=== PATIENT | female | born 1950 | race Caucasian/White ===

== ENCOUNTER 2022-04-28 06:17 | Day surgery (SDC) | payer MEDICARE, SELFPAY ==
--- NOTE | 2022-04-27 13:14 | P.CONAN_ITS ---
Documented by User: Melissa Spencer NP 04/27/22 13:14 HPI - Anesthesia Eval Consult details Narrative: 71yo F for [facility] Past Medical History Medical History (Updated 04/27/22 @ 10:51 by Paula Tomlin RN) Arthritis of left hip Asthma Bipolar 1 disorder GERD (gastroesophageal reflux disease) Heart attack HTN (hypertension) Hyperlipidemia Osteoporosis Uterine cancer Surgical History Surgical History (Updated 04/27/22 @ 10:51 by Paula Tomlin RN) H/O colonoscopy H/O esophagogastroduodenoscopy History of laparoscopic appendectomy History of total abdominal hysterectomy Social History Social History Patient Tobacco Use Status: Current everyday Tobacco user Tobacco use type: Cigarette Cigarettes Per Day: 8 Use of substances other than those prescribed or required for medical reasons: No Advance Directives: No Advance Directives Information Provided: Yes Meds Allergies Allergy/AdvReac Type Severity Reaction Status Date / Time diazepam [From Valium] Allergy Severe RESP Verified 04/28/22 06:51 DISTRESS penicillin G [Penicillin G] Allergy Intermediate HIVES Verified 04/28/22 06:51 Shellfish Allergy Intermediate HIVES/SWELL Uncoded 12/20/19 15:31 ING Home Medications Medication Instructions Recorded Confirmed Last Taken Type albuterol sulfate 90 mcg/actuation 1 inh inhalation Q4-6H PRN Wheezing 04/27/22 04/27/22 Unknown History breath activated powder inhaler (ProAir RespiClick) alendronate 70 mg tablet 70 mg PO 04/27/22 Unknown History atenolol 25 mg tablet 25 mg PO DAILY 04/27/22 04/27/22 04/28/22 History 25 mg atorvastatin 40 mg tablet 40 mg PO DAILY 04/27/22 04/27/22 Unknown History lisinopril 40 mg tablet 40 mg PO DAILY 04/27/22 04/27/22 Unknown History naproxen sodium 220 mg capsule 220 mg PO BID PRN Pain 04/27/22 04/27/22 Unknown History (Aleve) olanzapine 10 mg tablet 10 mg PO DAILY 04/27/22 04/27/22 Unknown History oxcarbazepine 600 mg tablet 1,200 mg PO DAILY 04/27/22 04/27/22 Unknown History oxycodone-acetaminophen 5 mg-325 tab 04/27/22 04/27/22 Unknown History mg tablet Exam Exam Date and Time: April 27, 2022 1314 Assessment and Plan Assessment Anesthesia Assessment: Chart Reviewed Documented by User: Daniel Estrada MD 04/28/22 07:21 HPI - Anesthesia Eval Consult details Narrative: 71yo F for Colonoscopy 2009 coronary stent, still smokes, PMFSH Past Medical History Medical History (Updated 04/27/22 @ 10:51 by Paula Tomlin RN) Arthritis of left hip Asthma Bipolar 1 disorder GERD (gastroesophageal reflux disease) Heart attack HTN (hypertension) Hyperlipidemia Osteoporosis Uterine cancer Family History Family history of problems with anesthesia: No Surgical History Surgical History (Updated 04/27/22 @ 10:51 by Paula Tomlin RN) H/O colonoscopy H/O esophagogastroduodenoscopy History of laparoscopic appendectomy History of total abdominal hysterectomy History of Problems with Anesthesia: No Social History Social History Patient Tobacco Use Status: Current everyday Tobacco user Tobacco use type: Cigarette Cigarettes Per Day: 8 Use of substances other than those prescribed or required for medical reasons: No Advance Directives: No Advance Directives Information Provided: Yes Meds Allergies Allergy/AdvReac Type Severity Reaction Status Date / Time diazepam [From Valium] Allergy Severe RESP Verified 04/28/22 06:51 DISTRESS penicillin G [Penicillin G] Allergy Intermediate HIVES Verified 04/28/22 06:51 Shellfish Allergy Intermediate HIVES/SWELL Uncoded 12/20/19 15:31 ING Home Medications Medication Instructions Recorded Confirmed Last Taken Type albuterol sulfate 90 mcg/actuation 1 inh inhalation Q4-6H PRN Wheezing 04/27/22 04/27/22 Unknown History breath activated powder inhaler (ProAir RespiClick) alendronate 70 mg tablet 70 mg PO 04/27/22 Unknown History atenolol 25 mg tablet 25 mg PO DAILY 04/27/22 04/27/22 04/28/22 History 25 mg atorvastatin 40 mg tablet 40 mg PO DAILY 04/27/22 04/27/22 Unknown History lisinopril 40 mg tablet 40 mg PO DAILY 04/27/22 04/27/22 Unknown History naproxen sodium 220 mg capsule 220 mg PO BID PRN Pain 04/27/22 04/27/22 Unknown History (Aleve) olanzapine 10 mg tablet 10 mg PO DAILY 04/27/22 04/27/22 Unknown History oxcarbazepine 600 mg tablet 1,200 mg PO DAILY 04/27/22 04/27/22 Unknown History oxycodone-acetaminophen 5 mg-325 tab 04/27/22 04/27/22 Unknown History mg tablet Exam Airway Mallampati Class: II TM Dist: >3cm Neck ROM: Limited Denture: Upper and Lower Loose/Missing/Broken Teeth: No Heart: rrr Lungs: scattered wheezing Assessment and Plan Final Anesthetic Review Family History of Problems with Anesthesia: No History of Problems with Anesthesia: No NPO: Yes ASA Class: III Final Preanesthetic Review: No Changes in Pt Med Stat, Meds/Allgs Chart Reviewed, Consent Obtained/Reviewed and Anes Risks/Benef Reviewed Patient Risk: Intermediate Procedure Risk: Low Anesthetic Plan Anesthetic Plan: MAC: and Agree w/ Assess. and Plan Disposition: Standard PACU
[2022-04-28 06:30] VITALS: BP 161/92; PULSE 73; RESP 17; TEMP 37; O2SAT 97; BMI 23.2; BMI 23.3
[2022-04-28] MEDS: Albuterol Sulfate (0.083%) 2.5 MG/3 ML VIAL.NEB INHALE (06:58)
[2022-04-28 06:59] VITALS: PULSE 71; RESP 18; O2SAT 94
[2022-04-28 08:38] VITALS: BP 149/79; PULSE 63; RESP 28; TEMP 36.4; O2SAT 99
--- NOTE | 2022-04-28 08:40 | P.BOP_ITS ---
Brief Operative Note Date of Service: 04/28/22 Pre-op diagnosis: Screening Post-op diagnosis: other (Rectal polyp) Procedure: Colonoscopy to the cecum with hot snare polypectomy Surgeon: Beny Escamilla Anesthesia: MAC Was an Manager Food Beverage used for this Procedure?: No Estimated blood loss (mL): 0 Pathology: other (A. Rectal polyp) Condition: stable Disposition: PACU
[2022-04-28 08:53] VITALS: BP 170/78; PULSE 64; RESP 20; TEMP 36.2; O2SAT 99
--- NOTE | 2022-04-28 11:11 | OP_ITS ---
SURGEON: Beny Escamilla MD INDICATIONS: The patient presents for evaluation of personal history of tubular adenoma of the colon, and colorectal cancer screening. Full consent was obtained from her for this, including risks of bleeding and perforation. PREOPERATIVE DIAGNOSIS: POSTOPERATIVE DIAGNOSIS: PROCEDURE PERFORMED: Colonoscopy to the cecum with hot snare polypectomy. ESTIMATED BLOOD LOSS: COMPLICATIONS: ANESTHESIA: Monitored anesthesia care. ASSISTANTS: SPECIMENS: PREOPERATIVE DIAGNOSES: Colorectal cancer screening and personal history of tubular adenoma of the colon. POSTOPERATIVE DIAGNOSES: Colorectal cancer screening and personal history of tubular adenoma of the colon, colon polyp, diverticulosis, internal hemorrhoids. DESCRIPTION OF PROCEDURE: The patient was placed in the left lateral decubitus position. The digital rectal exam revealed no abnormalities. The Olympus videopediatric colonoscope was entered into the rectum and advanced easily to the cecum. Once in the cecum, I did identify normal-appearing cecal pouch with appendiceal orifice and a normal-appearing ileocecal valve. There was transillumination of light deep in the right lower quadrant. The entire cecum was well visualized and appeared normal. The scope was slowly withdrawn assessing all mucosal surfaces carefully. Preparation was excellent. There was a mild amount of sigmoid diverticulosis. There was no sign of colitis or angiodysplasia. The only polyp I visualized was in the rectum. This was approximately 10 mm in size and was removed by hot snare polypectomy and recovered by suction. The polypectomy site appeared clean, without any sign of residual polyp nor bleeding. The scope was retroflexed, visualizing some small internal hemorrhoids as well. The scope was straightened and withdrawn from the patient. She tolerated the procedure well and was returned to the recovery area in stable condition. IMPRESSION: 1. Rectal polyp. 2. Diverticulosis. 3. Internal hemorrhoids. PLAN: Given her previous history, I recommend a followup colonoscopy in 5 years for further surveillance. She was advised not to use any aspirin nor NSAIDS for one weeks. She will otherwise see me on a p.r.n. basis. MD ISMAEL Moon/LARISSA / [id number] MTDD
== END 2022-04-28 10:09 | disposition home or self-care (01) ==
PROVIDERS: PCP Family Medicine; Visit Provider Internal Medicine
PROC: 0DJD8ZZ Inspection of Lower Intestinal Tract, Via Natural or Artificial Opening Endoscopic (ICD-10-PCS; CPT 45378; principal; 2022-04-28 07:30)
DX: Z12.11 Encounter for screening for malignant neoplasm of colon (principal); Z86.010 Personal history of colon polyps; D12.8 Benign neoplasm of rectum; K57.30 Diverticulosis of large intestine without perforation or abscess without bleeding; K64.8 Other hemorrhoids; K21.9 Gastro-esophageal reflux disease without esophagitis; J45.909 Unspecified asthma, uncomplicated; I10 Essential (primary) hypertension; M81.0 Age-related osteoporosis without current pathological fracture; I25.2 Old myocardial infarction; E78.5 Hyperlipidemia, unspecified; F31.9 Bipolar disorder, unspecified; Z79.1 Long term (current) use of non-steroidal anti-inflammatories (NSAID); Z79.899 Other long term (current) drug therapy; Z88.0 Allergy status to penicillin; Z88.8 Allergy status to other drugs, medicaments and biological substances; Z85.42 Personal history of malignant neoplasm of other parts of uterus; F17.200 Nicotine dependence, unspecified, uncomplicated
CPT/HCPCS: 45385; 88305; 94640; J3010